=== PATIENT | male | born 1990 | race Caucasian/White ===

== ENCOUNTER → 2016-11-26 | Outpatient (CLI) | payer BC | LOC: EDBD 10:55 → BHSO 10:55 | DX: F33.1 Major depressive disorder, recurrent, moderate (principal) | CPT/HCPCS: 90791-AI ==

== ENCOUNTER → 2016-12-30 | Outpatient (CLI) | payer BC | LOC: BHSO 13:01 | DX: F33.1 Major depressive disorder, recurrent, moderate (principal) ==

== ENCOUNTER → 2016-12-31 | Outpatient (CLI) | payer BC | LOC: BHSO 15:18 | DX: F33.1 Major depressive disorder, recurrent, moderate (principal) ==

== ENCOUNTER → 2017-01-29 | Outpatient (CLI) | payer BC | LOC: BHSO 15:00 | DX: F33.1 Major depressive disorder, recurrent, moderate (principal) ==

== ENCOUNTER → 2017-01-30 | Outpatient (CLI) | payer BC | LOC: BHSO 15:42 | DX: F41.0 Panic disorder [episodic paroxysmal anxiety] (principal) ==

== ENCOUNTER → 2017-02-05 | Outpatient (CLI) | payer BC | LOC: BHSO 15:02 | DX: F33.1 Major depressive disorder, recurrent, moderate (principal) ==

== ENCOUNTER → 2017-02-12 | Outpatient (CLI) | payer BC | LOC: BHSO 15:03 | DX: F33.1 Major depressive disorder, recurrent, moderate (principal) ==

== ENCOUNTER → 2017-02-19 | Outpatient (CLI) | payer BC | LOC: BHSO 15:03 | DX: F33.1 Major depressive disorder, recurrent, moderate (principal) ==

== ENCOUNTER → 2017-03-05 | Outpatient (CLI) | payer BC | LOC: BHSO 15:02 | DX: F33.1 Major depressive disorder, recurrent, moderate (principal) ==